=== PATIENT | male | born 1965 | race Caucasian/White ===

== ENCOUNTER 2016-09-04 08:01 | Emergency (ER) | payer BC, OTHER ==
--- NOTE | 2016-09-04 08:23 | ERPHSYRPT ---
- History of Present Illness Time Seen by Provider: 09/04/16 08:03 Historian: patient Physician History: The patient is a 51-year-old male with his complaining of chest pain with radiation to the left jaw and left arm and nausea that began when he woke up this morning at 7 AM or about 1 hour 15 minutes ago. He denies shortness of breath. Pt took 2 NG SL without relief at home. 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 The patient had a non-STEMI last week that was treated medically without stenting. 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 His right vein graft was closed. He was sent home with half dose of Eloquist and Plavix. He has a history of A. fib which is controlled with sotalol. He is on an CRISTIAN inhibitor a beta justin and Crestor. While speaking with Dr. Son on the phone I received our EKG and I shared the findings with Dr. Son. The EKG shows ST elevation in lead [address] depression in V2 through V6. Dr. Son requests the patient to be transferred immediately to [facility] without further testing. We discussed air flight transfer versus ground transfer. We are now checking on the possibility of air flight but this may seem unlikely due to the bad thunderstorms we've and having all night that her headed towards [place] today. Timing/Duration: today, hour(s) (1) Activities at Onset: none, sleep Quality: pressure Location: substernal Chest Pain Radiation: jaw, arm Severity of Pain-Max: moderate Severity of Pain-Current: moderate Modifying Factors: Improves With: nitroglycerin Associated Symptoms: nausea Prior Chest Pain/Cardiac Workup: heart attack Nitro Today/Relief: 0.4 mg x 2, provided by ED, provided at home Aspirin Treatment Today: 81 mg x 4, provided by ED Allergies/Adverse Reactions: No Known Drug Allergies Allergy (Unverified 09/04/16 08:09) Home Medications: Apixaban [Eliquis] 5 mg PO BID 09/04/16 [History] Aspirin 81 gm Chew [Baby Aspirin 81 mg Chew] 81 mg PO DAILY 09/04/16 [ History] Clopidogrel Bisulfate 75 mg [PLAVIX 75 MG Tablet] 75 mg PO DAILY 09/04/16 [History] Levothyroxine Sodium [Synthroid] 125 mcg PO DAILY 09/04/16 [History] Lisinopril [Zestril] 2.5 mg PO DAILY 09/04/16 [History] Metoprolol Tartrate 25 mg [Lopressor 25MG Tab] 25 mg PO DAILY 09/04/16 [ History] Nitroglycerin 0.4 mg Tablet [Nitrostat 0.4 MG Tablet] 0.4 mg SL UD [History] Rabeprazole Sodium [Aciphex] 20 mg PO DAILY 09/04/16 [History] Rosuvastatin Calcium [Crestor] 10 mg PO DAILY 09/04/16 [History] Sotalol HCl 80 mg [Betapace 80 MG] 80 mg PO BID 09/04/16 [History] - Review of Systems Constitutional: No Fever, No Chills Eyes: No Symptoms Ears, Nose, & Throat: No Symptoms Respiratory: No Cough, No Dyspnea Cardiac: Chest Pain Abdominal/Gastrointestinal: Nausea Genitourinary Symptoms: No Dysuria Musculoskeletal: No Back Pain, No Neck Pain Skin: No Rash Neurological: No Dizziness, No Focal Weakness, No Sensory Changes Psychological: No Symptoms Endocrine: No Symptoms Hematologic/Lymphatic: No Symptoms Immunological/Allergic: No Symptoms All Other Systems: Reviewed and Negative - Physical Exam General Appearance: mild distress Eye Exam: PERRL/EOMI, eyes nml inspection Ears, Nose, Throat Exam: normal ENT inspection, moist mucous membranes Neck Exam: normal inspection, non-tender, supple, full range of motion Respiratory Exam: normal breath sounds, lungs clear, No respiratory distress Cardiovascular Exam: irregular Gastrointestinal/Abdomen Exam: soft, No tenderness, No mass Rectal Exam: not done Back Exam: normal inspection, No CVA tenderness, No vertebral tenderness Extremity Exam: normal inspection, normal range of motion Neurologic Exam: alert, oriented x 3, cooperative, normal mood/affect, sensation nml, No motor deficits Skin Exam: normal color, warm, dry SpO2 Interpretation: normal - Course EKG Interpreted by Me: A-fib, ST Elev (III) - Radiology Exams Chest X-ray Interpretation: Interpreted by me, Negative, Other (scattered granulomas.) - Progress Progress: improved Air Movement: good Progress Note: 09/04/16 08:31 Pt given 2 NG SL in ED and O2 2L NC. Feeling better. Pt states his pain is now a 2 of 10, down from 7 of 10. 09/04/16 08:53 I discussed the patient's recent condition with Dr. Son and the fact that air care is unable to fly today. We agreed to use nitroglycerin 2 g IV to start because sublingual nitroglycerin helped relieve the chest pressure earlier. The patient will be transferred to [facility] by ground. Dr. Son does not recommend heparin because patient is already on Eloquist and Plavix. 09/04/16 09:20 Blood Culture(s) Obtained: No Antibiotics given: No Counseled pt/family regarding: diagnosis - Departure Time of Disposition: 08:47 Departure Disposition: Transfer (Transfer to [facility] per Dr Son.) Clinical Impression: Chest pain, Afib Condition: Stable Critical Care Time: No
[2016-09-04] MEDS ORDERED: BABY ASPIRIN 81 MG CHEW PO ONE (08:25)
[2016-09-04] MEDS ORDERED: Nitrostat 0.4 MG (ED) SL ONE ×2 (08:25→08:33)
[2016-09-04 08:37] LABS: BASOPHIL % 0.3 % (0.0-0.4); Eosinophil % 4.4 % (0.00-5.0); Granulocytes % 56.3 % (36.0-66.0); Lymphocytes % 27.4 % (24.0-44.0); Mean Cell Volume 86.1 fl (78-100); Mean Corpuscular Hemoglobin 29.7 pg (26-32); Mean Platelet Volume 9.2 fl (6-9.5); Monocytes % 11.6 % (0.0-12.0); Platelet Count 211 K/mm3 (150-450); Red Blood Count 5.12 M/mm3 (4.1-5.6); Red Cell Distribution Width 13.2 % (11.5-14.0); White Blood Count 6.8 K/mm3 (4.0-10.5)
[2016-09-04] MEDS ORDERED: Ntg 0.2MG/Ml in D5W GLASS*** 250 ML IV PRN (08:52)
[2016-09-04 08:53] LABS: ALBUMIN 3.9 g/dL (3.4-5.0); ALKALINE PHOSPHATASE 78 U/L (46-116); ANION GAP 16.5 MEQ/L (5-15); BLOOD UREA NITROGEN 14 mg/dL (9-20); CHLORIDE 102 mEq/L (98-107); Carbon Dioxide 25.7 mEq/L (21-32); Glucose 117 MG/DL (70-110); Potassium 3.6 mEq/L (3.5-5.1); SGOT/AST 41 U/L (15-37); SGPT/ALT 40 U/L (12-78); SODIUM 141 mEq/L (136-145); Total Protein 7.7 gm/dL (6.4-8.2)
[2016-09-04] MEDS ORDERED: Ntg 0.2MG/Ml in D5W GLASS*** 250 ML IV ONE (08:58)
--- NOTE | 2016-09-04 08:58 | XRAY ---
Indication: Chest pain. Comparison: None Portable chest demonstrate a few calcified granulomas and previous cardiothoracic surgery. No focal infiltrate, consolidation, or large effusion. Heart is not enlarged. Bony thorax intact. Impression: Nonacute chest with chronic features.
[2016-09-04] MEDS ORDERED: Sodium Chloride 0.9% 1000 ML 1,000 ML ONE (09:01)
[2016-09-04 09:31] VITALS: BP 116/60; PULSE 106; O2SAT 98
[2016-09-04] MEDS ORDERED: Sodium Chloride 0.9% 1000 ML 1,000 ML IV SCH (10:15)
== END 2016-09-04 10:06 | disposition short-term general hospital (02) ==
LOC: ED 08:01
DX: R07.89 Other chest pain (principal); I48.91 Unspecified atrial fibrillation; Z95.1 Presence of aortocoronary bypass graft; I25.2 Old myocardial infarction; Z79.01 Long term (current) use of anticoagulants; Z79.899 Other long term (current) drug therapy
CPT/HCPCS: 36000; 36415; 71010; 80053; 84484; 85025; 85379; 85730; 93005; 93041; 96365; 99285; A9270-GY